=== PATIENT | male | born 1940 | race Caucasian/White ===

== ENCOUNTER 2017-01-19 08:26 | Outpatient (CLI) | payer MEDICARE, OTHER ==
[2017-01-19 12:59] LABS: Cardiac Risk 4.4 (Less than 4.5)
== END 2017-01-19 08:27 | disposition home or self-care (01) ==
LOC: NAVSJIPCSP 08:26
PROVIDERS: ATTEND Internal Medicine
DX: E78.5 Hyperlipidemia, unspecified (principal); Z79.899 Other long term (current) drug therapy
CPT/HCPCS: 36415; 80061

== ENCOUNTER 2017-04-22 08:49 | Outpatient (CLI) | payer MEDICARE, OTHER ==
[2017-04-22 13:11] LABS: Cardiac Risk 4.6 (Less than 4.5)
== END 2017-04-22 08:50 ==
LOC: NAVSJIPCSP 08:49
PROVIDERS: ATTEND Internal Medicine
DX: E78.5 Hyperlipidemia, unspecified (principal); Z79.899 Other long term (current) drug therapy
CPT/HCPCS: 36415; 80061

== ENCOUNTER 2020-02-10 17:57 | Emergency (ER) | payer MEDICARE | END 2020-02-10 19:35 | disposition home or self-care (01) | LOC: NAV ERS 17:57 | DX: R33.9 Retention of urine, unspecified (principal); I10 Essential (primary) hypertension; J44.9 Chronic obstructive pulmonary disease, unspecified; Z79.51 Long term (current) use of inhaled steroids; Z79.899 Other long term (current) drug therapy | CPT/HCPCS: 51702 ==

== ENCOUNTER 2020-02-12 10:14 | Emergency (ER) | payer MEDICARE | END 2020-02-12 11:50 | disposition home or self-care (01) | LOC: NAV ERS 10:14 | DX: L76.22 Postprocedural hemorrhage of skin and subcutaneous tissue following other procedure (principal); I10 Essential (primary) hypertension; J44.9 Chronic obstructive pulmonary disease, unspecified; Z79.899 Other long term (current) drug therapy ==

== ENCOUNTER 2020-02-19 09:18 | Outpatient (CLI) | payer MEDICARE ==
--- NOTE | 2020-02-19 10:08 | RAD ---
TWO VIEWS CHEST: DATE: 02/19/2020. PROVIDED CLINICAL HISTORY: Preop. FINDINGS: Comparison is made with CT examination 12/12/2019. There is pleural and/or parenchymal opacity at the left lung base. The right lung appears clear. Heart size appears normal. Vascular calcification i s noted. No evidence for pneumothorax. IMPRESSION: Left basilar pleural and/or parenchymal opacity. Correlate with concerns for pneumonia. Followup is recommended. POS: [facility]
== END 2020-02-19 09:19 | disposition home or self-care (01) ==
LOC: NAV RAD 09:18
DX: C34.32 Malignant neoplasm of lower lobe, left bronchus or lung (principal)
CPT/HCPCS: 71046

== ENCOUNTER 2020-02-19 09:42 | Emergency (ER) | payer MEDICARE | END 2020-02-19 10:25 | disposition home or self-care (01) | LOC: NAV ERS 09:42 | DX: Z46.6 Encounter for fitting and adjustment of urinary device (principal); I10 Essential (primary) hypertension; E78.00 Pure hypercholesterolemia, unspecified; J44.9 Chronic obstructive pulmonary disease, unspecified; Z79.899 Other long term (current) drug therapy | CPT/HCPCS: 99283 ==

== ENCOUNTER 2021-04-02 11:11 | Outpatient (CLI) | payer MEDICARE | END 2021-04-02 11:12 | disposition home or self-care (01) | LOC: NAV RAD 11:11 | PROVIDERS: ATTEND Internal Medicine | DX: C34.92 Malignant neoplasm of unspecified part of left bronchus or lung (principal); J44.9 Chronic obstructive pulmonary disease, unspecified; R05 Cough; I51.9 Heart disease, unspecified; J90 Pleural effusion, not elsewhere classified; J98.11 Atelectasis; J98.6 Disorders of diaphragm | CPT/HCPCS: 71046 ==

== ENCOUNTER 2023-12-18 07:13 | Emergency (ER) | payer MEDICARE ==
[2023-12-18] MEDS ORDERED: Ipratropium/Albuterol 3 ML NEB ONE ×2 (07:44→13:32)
[2023-12-18] MEDS ORDERED: methylPREDNISolone Sod Succ/PF 125 MG/2 ML VIAL ONE (07:44)
[2023-12-18] MEDS ORDERED: Ketorolac Tromethamine 30 MG (1 mL) VIAL ONE (07:52)
[2023-12-18 07:55] LABS: Band 6 % (5-11); Eosinophils 43 % (0-10); Hematocrit 36.2 % (42.0-52.0); Hemoglobin 12.1 g/dL (14.0-18.0); Lymphocytes 1 % (21-51); MDiff Complete? YES; Mean Corpuscular HGB CONC 33.5 g/dL (32.0-36.0); Mean Corpuscular Hemoglobin 31.3 pg (27.0-31.0); Mean Corpuscular Volume 93.4 fl (78.0-98.0); Mean Platelet Volume 7.6 fL (7.4-10.4); Monocytes 9 % (0-10); Neutrophil 40 % (42-75); Platelet Count 264 10x3/uL (130-400); RBC Distribution Width 10.6 % (11.5-14.5); Red Blood Cell (RBC) Count 3.87 mill/uL (4.70-6.10); White Blood Cell (WBC) Count 42.5 10x3/uL (4.8-10.8)
[2023-12-18 07:59] LABS: ALT (SGPT) 123 U/L (8-55); AST (SGOT) 46 U/L (5-34); Albumin 3.3 g/dL (3.4-4.8); Alkaline Phosphatase 445 U/L (40-110); Anion Gap 13 mmol/L (10-20); BUN (Urea Nitrogen) 19 mg/dL (8.4-25.7); Bilirubin, Total 0.3 mg/dL (0.2-1.2); Calc. Creatinine Clearance 0 mL/min (70-130); Calcium 8.6 mg/dL (7.8-10.44); Carbon Dioxide 29 mmol/L (23-31); Chloride 100 mmol/L (98-107); Estimated GFR 55; Glucose 189 mg/dL (83-110); Potassium 4.2 mmol/L (3.5-5.1); Protein, Total 6.3 g/dL (5.8-8.1); Sodium 138 mmol/L (136-145)
[2023-12-18 08:00] LABS: Troponin I 0.267 ng/mL (< 0.028)
[2023-12-18] MEDS ORDERED: Aspirin Chewable 81 MG TAB ONE (08:12)
[2023-12-18 08:33] LABS: Influenza A by NAA Not Detected (NotDetected); Influenza B by NAA Not Detected (NotDetected); SARS-CoV-2 NAA Rapid Test DETECTED (NotDetected)
[2023-12-18 09:08] LABS: Bilirubin Negative (Negative); Blood, Urine Small (Negative); Clarity Clear (Clear); Glucose, Urine (Dipstick) Negative (Negative); Ketone, Urine Negative (Negative); Leukocyte Trace (Negative); Nitrite Negative (Negative); Protein, Urine (Dipstick) 100 mg/dL (Neg-Trace); Specific Gravity, Urine 1.015 (1.005-1.030); Urobilinogen 0.2 mg/dL (Less than 2); pH, Urine 5.5 (5.0-9.0)
[2023-12-18 09:17] LABS: Bacteria/HPF Rare-Few HPF (None Seen); CAUTI Indications for Culture Pelvic or flank pain
[2023-12-18 09:18] LABS: Urine Culture Reflex No No
[2023-12-18] MEDS ORDERED: Enoxaparin 80 MG (0.8 mL) SYRINGE ONE (10:24)
[2023-12-18] MEDS ORDERED: LevoFLOXacin 750 mg/D5W 750 MG in Premix 1 BAG IVPB SCH (10:45)
[2023-12-18 11:15] LABS: Critical Call Chem Troponin I NUR.OS1@1115; Troponin I 0.255 ng/mL (< 0.028)
[2023-12-18 14:16] LABS: Critical Call Chem Troponin I NUR.OS1@1416; Troponin I 0.205 ng/mL (< 0.028)
== END 2023-12-18 14:58 | disposition short-term general hospital (02) ==
LOC: NAV ERS 07:13
DX: U07.1 COVID-19 (principal); J44.1 Chronic obstructive pulmonary disease with (acute) exacerbation; D72.829 Elevated white blood cell count, unspecified; C78.00 Secondary malignant neoplasm of unspecified lung; R07.89 Other chest pain; I10 Essential (primary) hypertension; E78.00 Pure hypercholesterolemia, unspecified; Z79.899 Other long term (current) drug therapy; Z87.891 Personal history of nicotine dependence
CPT/HCPCS: 0240U; 71045; 71275; 80053; 81001; 83880; 84484 ×2; 85025; 85379; 87040; 93005; 94760; 36415; 96365; 96375; J1650; J1885; J1956; J2930; J7620